=== PATIENT | female | born 1960 | race Hispanic/Latino ===

== ENCOUNTER 2022-07-04 15:07 | Outpatient (CLI) | payer OTHER | END 2022-07-04 15:08 | disposition home or self-care (01) | LOC: CSHCT 15:07 | PROVIDERS: ATTEND Family Medicine | DX: M54.16 Radiculopathy, lumbar region (principal); Z98.1 Arthrodesis status; Z98.890 Other specified postprocedural states; M51.35 Other intervertebral disc degeneration, thoracolumbar region; M48.061 Spinal stenosis, lumbar region without neurogenic claudication | CPT/HCPCS: 72131 ==

== ENCOUNTER 2024-03-31 12:18 | Emergency (ER) | payer OTHER ==
[2024-03-31] MEDS ORDERED: Dexamethasone 10 MG/ML VIAL ONE (12:47)
== END 2024-03-31 13:15 | disposition home or self-care (01) ==
LOC: CSHERS 12:18
DX: M54.41 Lumbago with sciatica, right side (principal)
CPT/HCPCS: 96372; 99283; J1100